=== PATIENT | male | born 1945 | race Two or more races ===

== ENCOUNTER → 2020-02-24 | Outpatient (CLI) | payer MEDICARE | END | disposition home or self-care (01) | LOC: MSC 10:35 | PROVIDERS: ATTEND Anesthesiology | DX: M51.26 Other intervertebral disc displacement, lumbar region (principal); M47.26 Other spondylosis with radiculopathy, lumbar region; M47.27 Other spondylosis with radiculopathy, lumbosacral region; M62.830 Muscle spasm of back; M40.299 Other kyphosis, site unspecified; M79.2 Neuralgia and neuritis, unspecified; M79.605 Pain in left leg; R20.2 Paresthesia of skin ==